=== PATIENT | male | born 1970 | race Caucasian/White ===

== ENCOUNTER 2017-04-18 11:30 | Emergency (ER) | payer SELFPAY, OTHER ==
[2017-04-18] MEDS: NS 1,000 ML IV (12:30)
[2017-04-18] MEDS: ONDANSETRON 4MG/2ML VIAL (J2405) IV (12:31)
[2017-04-18] MEDS: MORPHINE 4 MG/ML 1ML SYRINGE IV (12:31)
[2017-04-18 12:35] LABS: BASO % 0.1 % (0.0-1.0); HEMATOCRIT 40.4 % (42.0-52.0); HEMOGLOBIN 14.2 g/dl (14.0-18.0); IMMATURE GRANULOCYTE # 0.1 10^3/uL (0-0); IMMATURE GRANULOCYTE % 0.4 % (0-0); LYMPH # 1.3 10^3/uL (1.5-4.5); LYMPH % 7.8 % (24.0-44.0); MEAN CORPUSCULAR HEMOGLOBIN 31.8 pg (27.0-33.0); MEAN CORPUSCULAR HGB CONC 35.1 g/dl (32.0-36.5); MEAN CORPUSCULAR VOLUME 90.4 fl (80.0-96.0); MONO # 0.4 10^3/uL (0.0-0.8); MONO % 2.2 % (0.0-5.0); NEUTROPHILS # 14.8 10^3/uL (1.8-7.7); NEUTROPHILS % 89.5 % (36.0-66.0); PLATELET COUNT, AUTOMATED 269 10^3/uL (150-450); RED BLOOD COUNT 4.47 10^6/uL (4.30-6.10); RED CELL DISTRIBUTION WIDTH 11.7 % (11.5-14.5); WHITE BLOOD COUNT 16.5 10^3/uL (4.0-10.0)
[2017-04-18 12:40] LABS: APPEARANCE, URINE HAZY (CLEAR); BACTERIA, URINE AUTO NEGATIVE (NEGATIVE); BILIRUBIN, URINE AUTO 1+ (NEGATIVE); BLOOD, URINE BLOOD NEGATIVE (NEGATIVE); COLOR, URINE AMBER (YELLOW); GLUCOSE, URINE (UA) AUTO 1+ mg/dL (NEGATIVE); KETONE, URINE AUTO 2+ mg/dL (NEGATIVE); LEUKOCYTE ESTERASE, URINE AUTO TRACE (NEGATIVE); MUCUS, URINE MODERATE (NEGATIVE); NITRITE, URINE AUTO NEGATIVE (NEGATIVE); PROTEIN, URINE AUTO 2+ mg/dL (NEGATIVE); RBC, URINE AUTO 4 /HPF (0-3); SPECIFIC GRAVITY URINE AUTO 1.034 (1.002-1.035); SQUAMOUS EPITHELIAL CELL UR AU 0 /HPF (0-6); WBC, URINE AUTO 1 /HPF (0-3)
[2017-04-18 13:06] LABS: ALBUMIN 4.5 GM/DL (3.2-5.2); ALBUMIN/GLOBULIN RATIO 1.22 (1.00-1.93); ALKALINE PHOSPHATASE 89 U/L (45-117); ALT/SGPT 26 U/L (12-78); ANION GAP 10 MEQ/L (8-16); AST/SGOT 21 U/L (7-37); BILIRUBIN,TOTAL 1.5 MG/DL (0.2-1.0); BLOOD UREA NITROGEN 18 MG/DL (7-18); CALCIUM LEVEL 9.4 MG/DL (8.5-10.1); CARBON DIOXIDE LEVEL 28 MEQ/L (21-32); CHLORIDE LEVEL 102 MEQ/L (98-107); CREATININE FOR GFR 1.06 MG/DL (0.70-1.30); GLOMERULAR FILTRATION RATE > 60.0 (>60); GLUCOSE, FASTING 160 MG/DL (70-105); LIPASE 57 U/L (73-393); POTASSIUM SERUM 4.1 MEQ/L (3.5-5.1); SODIUM LEVEL 140 MEQ/L (136-145); TOTAL PROTEIN 8.2 GM/DL (6.4-8.2)
[2017-04-18] MEDS ORDERED: ISOVUE-370 76% 100ML VIAL (Q9967) As Ordered (13:27)
== END 2017-04-18 15:20 | disposition home or self-care (01) ==
LOC: M ED 11:30
DX: K57.32 Diverticulitis of large intestine without perforation or abscess without bleeding (principal); E86.0 Dehydration; I10 Essential (primary) hypertension; K21.9 Gastro-esophageal reflux disease without esophagitis; F41.9 Anxiety disorder, unspecified; F32.9 Major depressive disorder, single episode, unspecified
CPT/HCPCS: J2405

== ENCOUNTER → 2018-02-13 | Outpatient (CLI) | payer MEDICAID | LOC: M RAD 06:27 | DX: N50.9 Disorder of male genital organs, unspecified (principal) ==

== ENCOUNTER 2018-05-03 09:05 | Day surgery (SDC) | payer OTHER ==
[~2018-05-03] VITALS: Ht 180.3 cm; Wt 58.5 kg
[~2018-05-03 09:05] MED LIST: CIPR-249 PO; FLAG500T PO; LEVA1TAB2 PO; OMEP40CA2 PO; VENL225T PO; VIST25CA PO; ZOFR4TAB14 PO
[2018-05-03] MEDS ORDERED: PROPOFOL 200 MG/20 ML VIAL As Ordered ONE (10:41)
[2018-05-03] MEDS ORDERED: ONDANSETRON 4MG/2ML VIAL (J2405) As Ordered ONE (10:41)
[2018-05-03] MEDS ORDERED: LIDOCAINE 2% INJ 100 MG/5 ML SDV (FOR ANES.) As Ordered ONE (10:41)
--- NOTE | 2018-05-03 10:55 | ROOR ---
Patient Name: Romie Mckeon Procedure Date: 05/03/2018 10:24 AM Date of : 1970 Age: 47 Room: [facility] Gender: Male Note Status: Finalized Procedure: Colonoscopy Indications: High risk colon cancer surveillance: Personal history of colonic polyps, Last colonoscopy: December 2014, Family history of colon cancer Providers: Nick KWAN MD Referring MD: JAVIER [facility] МАРИЯ Reese CLRADHA [facility], Admin. Requesting Provider: Medicines: Monitored Anesthesia Care Complications: No immediate complications. Procedure: Pre-Anesthesia Assessment: - The heart rate, respiratory rate, oxygen saturations, blood pressure, adequacy of pulmonary ventilation, and response to care were monitored throughout the procedure. The Colonoscope was introduced through the anus and advanced to the cecum, identified by appendiceal orifice and ileocecal valve. The colonoscopy was performed without difficulty. The patient tolerated the procedure well. The quality of the bowel preparation was fair. Findings: The perianal and digital rectal examinations were normal. Two sessile polyps were found in the sigmoid colon and descending colon. The polyps were 4 to 6 mm in size. These polyps were removed with a cold snare. Resection and retrieval were complete. Mild sigmoid diverticulosis and small internal hemorrhoids. The exam was otherwise without abnormality on direct and retroflexion views. Impression: - Preparation of the colon was suboptimal/fair. - Two 4 to 6 mm polyps in the sigmoid colon and in the descending colon, removed with a cold snare. Resected and retrieved. - Mild sigmoid diverticulosis and moderate internal hemorrhoids. - The examination was otherwise normal on direct and retroflexion views. Recommendation: - Repeat colonoscopy in 2 years because the bowel preparation was suboptimal. - Additional colon preparation will be needed for next colonoscopy Nick Kwan MD Nick KWAN MD 05/03/2018 10:55:02 AM This report has been signed electronically. Number of Addenda: 0 Note Initiated On: 05/03/2018 10:24 AM Estimated Blood Loss: Estimated blood loss: none.
[2018-05-03 11:10] VITALS: BP 111/64
== END 2018-05-03 11:25 | disposition home or self-care (01) ==
LOC: M OPP 09:05
PROVIDERS: ATTEND Internal Medicine Gastroenterology
DX: Z12.11 Encounter for screening for malignant neoplasm of colon (principal); Z86.010 Personal history of colon polyps; K63.5 Polyp of colon; D12.4 Benign neoplasm of descending colon; K64.8 Other hemorrhoids; Z80.0 Family history of malignant neoplasm of digestive organs; Z91.89 Other specified personal risk factors, not elsewhere classified
CPT/HCPCS: 45385; 88305; J2405

== ENCOUNTER 2019-06-15 07:48 | Emergency (ER) | payer MEDICAID, OTHER ==
[~2019-06-15] VITALS: Ht 180.3 cm; Wt 58.2 kg
[~2019-06-15 07:48] MED LIST changes: -OMEP40CA2 PO; +OMEP40CA97 PO; -VENL225T PO; +VENL225T5 PO
[2019-06-15] MEDS ORDERED: CLON0.2T (07:55)
[2019-06-15] MEDS ORDERED: FLUO20CA22 (07:55)
[2019-06-15] MEDS ORDERED: NS 1,000 ML IV ONE (08:15)
[2019-06-15] MEDS ORDERED: ONDANSETRON 4MG/2ML VIAL (J2405) IV ONE (08:15)
[2019-06-15 08:26] LABS: BASO # 0.1 10^3/uL (0.0-0.2); BASO % 0.5 % (0.0-1.0); EOS # 0.1 10^3/uL (0.0-0.5); EOS % 0.6 % (0.0-3.0); HEMATOCRIT 38.8 % (42.0-52.0); HEMOGLOBIN 13.4 g/dl (13.5-17.5); LYMPH # 2.2 10^3/uL (1.5-5.0); LYMPH % 18.9 % (24.0-44.0); MEAN CORPUSCULAR HEMOGLOBIN 31.7 pg (27.0-33.0); MEAN CORPUSCULAR HGB CONC 34.5 g/dl (32.0-36.5); MEAN CORPUSCULAR VOLUME 91.7 fl (80.0-96.0); MONO # 0.5 10^3/uL (0.0-0.8); NEUTROPHILS # 8.8 10^3/uL (1.5-8.5); NEUTROPHILS % 75.4 % (36.0-66.0); PLATELET COUNT, AUTOMATED 261 10^3/uL (150-450); RED BLOOD COUNT 4.23 10^6/uL (4.30-6.10); WHITE BLOOD COUNT 11.7 10^3/uL (4.0-10.0)
[2019-06-15] MEDS ORDERED: PROMETHAZINE INJ 25 MG/ML VIAL (J2550) IV ONE ×2 (08:45→11:00)
[2019-06-15] MEDS ORDERED: ISOVUE-370 76% 100ML VIAL (Q9967) As Ordered ONE (09:19)
[2019-06-15] MEDS ORDERED: HALOPERIDOL 5 MG/ML VIAL (J1630) IV ONE (09:45)
[2019-06-15 09:46] LABS: BILIRUBIN,DIRECT 0.1 MG/DL (0.0-0.2); BILIRUBIN,TOTAL 0.5 MG/DL (0.2-1.0); TOTAL PROTEIN 7.2 GM/DL (6.4-8.2)
--- NOTE | 2019-06-15 10:03 | REP ---
CT abdomen and pelvis without IV but without oral contrast: History: Abdomen pain, vomiting and diarrhea. Comparison CT study April 18, 2017. CT contrast dose: 100 mL of intravenous Isovue 370. 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 There is a 13 mm cyst in the periportal central region of the right lobe of the liver , a little larger than on the April 18, 2017 study. There is also a cyst inferiorly in the right lobe of the liver 8 mm in diameter, which is unchanged. There is a small cyst in the quadrate lobe also noted measuring 8.5 mm. This is visible in retrospect as well. No other focal liver lesion is seen. No abnormality is noted in the gallbladder or in the pancreas. The spleen is normal in size. There is focal splenic capsular calcification, unchanged from the prior study. This may be old post-traumatic change. Kidneys enhance symmetrically and are morphologically intact. No retroperitoneal mass or adenopathy is seen. A normal appendix is noted in the right lower quadrant. There is left colonic diverticulosis affecting the descending and sigmoid segments of the colon without CT evidence of diverticulitis. Urinary bladder, prostate, and seminal vesicles are unremarkable. No abdomen wall defect is seen. No evidence of free intraperitoneal air or fluid. No evidence of bowel obstruction seen. Impression: Left colonic diverticulosis without CT evidence of diverticulitis. Benign hepatic cysts. No acute abdominal or pelvic abnormality. Normal appendix seen. Electronically Signed by Saurav Dickinson MD 06/15/2019 10:16 A
[2019-06-15] MEDS ORDERED: POTASSIUM CHLORIDE 10 MEQ SR TABLET PO ONE (11:00)
[2019-06-15] MEDS ORDERED: PROM50TA PO ×2 (12:51→15:20)
[2019-06-15] MEDS ORDERED: PANTOPRAZOLE 40MG INJ (PROTONIX) (C9113) IV ONE (14:00)
[2019-06-15] MEDS ORDERED: SUCRALFATE SUSP 1GM/10ML UD PO ONE (14:00)
[2019-06-15] MEDS ORDERED: PROT20TA11 PO ×2 (14:31→15:20)
[2019-06-15] MEDS ORDERED: SUCR1SS PO ×2 (14:32→15:20)
[2019-06-15 15:01] VITALS: BP 142/92
== END 2019-06-15 15:22 | disposition home or self-care (01) ==
LOC: M ED 07:48
DX: E87.6 Hypokalemia (principal); K57.30 Diverticulosis of large intestine without perforation or abscess without bleeding; R11.2 Nausea with vomiting, unspecified; R19.7 Diarrhea, unspecified; F41.9 Anxiety disorder, unspecified; F33.9 Major depressive disorder, recurrent, unspecified; Z79.899 Other long term (current) drug therapy
CPT/HCPCS: 36415; 74177; 80047; 80076; 83690; 85025; 96374; 96375; 96376; 99284; C9113; J1630; J2405; Q9967

== ENCOUNTER 2019-10-11 19:12 | Emergency (ER) | payer OTHER, MEDICAID ==
[~2019-10-11] VITALS: Ht 180.3 cm; Wt 59.1 kg
[~2019-10-11 19:12] MED LIST changes: +CLON0.2T; +FLUO20CA22; +PROM50TA PO; +PROT20TA11 PO; +SUCR1SS PO
[2019-10-11] MEDS ORDERED: GI COCKTAIL 50ML BTL(HYOSCYAMINE/MAALOX/LIDOCAINE VISCOUS)(1:3:1) PO ONE (19:30)
[2019-10-11] MEDS ORDERED: ONDANSETRON 4MG/2ML VIAL IV ONE (19:45)
[2019-10-11] MEDS ORDERED: KETOROLAC 30 MG/ML 1ML VIAL IV ONE (19:45)
[2019-10-11] MEDS ORDERED: NS 1,000 ML IV ONE (19:45)
[2019-10-11 19:55] LABS: BASO % 0.1 % (0.0-1.0); EOS % 0.3 % (0.0-3.0); HEMATOCRIT 44.5 % (42.0-52.0); HEMOGLOBIN 15.8 g/dl (13.5-17.5); LYMPH # 2.1 10^3/uL (1.5-5.0); LYMPH % 13.2 % (24.0-44.0); MEAN CORPUSCULAR HEMOGLOBIN 31.9 pg (27.0-33.0); MEAN CORPUSCULAR HGB CONC 35.5 g/dl (32.0-36.5); MEAN CORPUSCULAR VOLUME 89.9 fl (80.0-96.0); MONO % 6.4 % (0.0-5.0); NEUTROPHILS # 12.5 10^3/uL (1.5-8.5); NEUTROPHILS % 79.7 % (36.0-66.0); PLATELET COUNT, AUTOMATED 293 10^3/uL (150-450); RED BLOOD COUNT 4.95 10^6/uL (4.30-6.10); WHITE BLOOD COUNT 15.7 10^3/uL (4.0-10.0)
[2019-10-11] MEDS: GASTROGRAFIN SOLUTION 30ML PO SCH ×2 (20:05→20:32)
[2019-10-11 20:18] LABS: ALBUMIN 4.5 GM/DL (3.2-5.2); ALT/SGPT 26 U/L (12-78); BILIRUBIN,DIRECT 0.2 MG/DL (0.0-0.2); BILIRUBIN,TOTAL 0.7 MG/DL (0.2-1.0); CK-MB VALUE MASS 3.4 NG/ML (<3.6); CPK CREATINE PHOSPHOKINASE 462 U/L (39-308); LIPASE 848 U/L (73-393); MB/CK RELATIVE INDEX 0.74 (< OR =4); TOTAL PROTEIN 8.6 GM/DL (6.4-8.2); TROPONIN I < 0.02 NG/ML (< 0.10)
[2019-10-11] MEDS ORDERED: ISOVUE-370 76% 100ML VIAL As Ordered ONE (21:48)
--- NOTE | 2019-10-11 22:40 | REPVR ---
PROCEDURE INFORMATION: Exam: CT Abdomen And Pelvis With Contrast Exam date and time: 10/11/2019 10:02 PM Age: 49 years old Clinical indication: Abdominal pain; Additional info: HX of diverticulitis with abd pain, n/v TECHNIQUE: Imaging protocol: Computed tomography of the abdomen and pelvis with intravenous contrast. Radiation optimization: All CT scans at this facility use at least one of these dose optimization techniques: automated exposure control; mA and/or kV adjustment per patient size (includes targeted exams where dose is matched to clinical indication); or iterative reconstruction. Contrast material: ISOVUE 370; Contrast volume: 100 ml; Contrast route: INTRAVENOUS (IV); COMPARISON: CT ABD/PEL W/IV CONTRAST ONLY 06/15/2019 9:16 AM FINDINGS: Liver: Hepatic cysts measure up to 9 x 12 mm in the right lobe of the liver, findings stable in comparison to the prior study. Gallbladder and bile ducts: Normal. No calcified stones. No ductal dilation. Pancreas: Normal. No ductal dilation. Spleen: The splenic capsular calcification demonstrated. Finding may be related to prior trauma or infection. Findings are stable. Adrenals: Normal. No mass. Kidneys and ureters: Normal. No hydronephrosis. Stomach and bowel: Boggy appearance of the distal left and sigmoid colon including wall thickening. Findings may be related to diverticulitis although extensive involvement suggests possible segmental colitis. No abscess demonstrated. Appendix: No evidence of appendicitis. Intraperitoneal space: Unremarkable. No free air. No significant fluid collection. Vasculature: The aorta demonstrates mild atherosclerotic calcification. Lymph nodes: Unremarkable. No enlarged lymph nodes. Bladder: Unremarkable as visualized. Reproductive: Unremarkable as visualized. Bones/joints: Moderate central spinal stenosis L3-L4 and severe central spinal stenosis L4-L5. Bulging disc annulus L5-S1 resulting in a [id number] central spinal stenosis. The spine demonstrates mild degenerative changes. Soft tissues: Unremarkable. IMPRESSION: 1. Boggy appearance of the distal left and sigmoid colon including wall thickening. Findings may be related to diverticulitis although extensive involvement suggests possible segmental colitis. No abscess demonstrated. 2. Numerous hepatic cysts without complex features. 3. Splenic capsular calcification likely postinflammatory/posttraumatic. Electronically signed by: Ramirez Rubio On 10/11/2019 22:39:38 PM
[2019-10-11] MEDS ORDERED: CIPROFLOXACIN 400 MG in IV 1 EA IV ONE (23:00)
[2019-10-11] MEDS ORDERED: metroNIDAZOLE 500 MG in IV 1 EA IV ONE (23:00)
[2019-10-11 23:44] VITALS: BP 165/85
[2019-10-12] MEDS ORDERED: CIPR-249 PO (00:34)
[2019-10-12] MEDS ORDERED: FLAG500T PO (00:34)
[2019-10-12] MEDS ORDERED: POTASSIUM CHLORIDE 10 MEQ SR TABLET PO ONE (00:45)
[2019-10-12 01:04] LABS: HEMOGLOBIN A1c 5.7 %
--- NOTE | 2019-10-12 06:58 | ECGEPIP ---
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
== END 2019-10-12 01:20 | disposition home or self-care (01) ==
LOC: M ED 19:12
DX: K58.9 Irritable bowel syndrome, unspecified (principal); I10 Essential (primary) hypertension; F12.90 Cannabis use, unspecified, uncomplicated; Z79.899 Other long term (current) drug therapy
CPT/HCPCS: 74177; 80047; 80076; 81001; 82550; 82553; 83036; 83605; 83690; 85025; 93005; 96361; 96365; 96375; 99284; J0744; J1885; J2405; Q9963; Q9967

== ENCOUNTER 2019-11-14 14:50 | Emergency (ER) | payer OTHER, MEDICAID ==
[~2019-11-14 14:50] MED LIST changes: +GASTROGRAFIN SOLUTION 30ML (Q9963) As Ordered ONE; +GASTROGRAFIN SOLUTION 30ML (Q9963) ONE; +HALOPERIDOL 5MG/ML VIAL (J1630 PER 1) As Ordered ONE; +HALOPERIDOL 5MG/ML VIAL (J1630 PER 1) ONE; +ISOVUE-370 76% 100ML VIAL As Ordered ONE; +ONDANSETRON 4MG/2ML VIAL As Ordered ONE; +ONDANSETRON 4MG/2ML VIAL ONE
--- NOTE | 2019-12-24 11:15 | ECGEPIP ---
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 SEE SCANNED DOWNTIME REPORT
[2019-12-28 16:29] LABS: BASO # 0.1 10^3/uL (0.0-0.2); BASO % 0.4 % (0.0-1.0); EOS % 0.1 % (0.0-3.0); HEMATOCRIT 39.5 % (42.0-52.0); HEMOGLOBIN 13.7 g/dl (13.5-17.5); LYMPH # 1.9 10^3/uL (1.5-5.0); LYMPH % 13.5 % (24.0-44.0); MEAN CORPUSCULAR HEMOGLOBIN 32.3 pg (27.0-33.0); MEAN CORPUSCULAR HGB CONC 34.7 g/dl (32.0-36.5); MEAN CORPUSCULAR VOLUME 93.2 fl (80.0-96.0); MONO # 0.5 10^3/uL (0.0-0.8); MONO % 3.1 % (0.0-5.0); NEUTROPHILS # 11.8 10^3/uL (1.5-8.5); NEUTROPHILS % 82.4 % (36.0-66.0); PLATELET COUNT, AUTOMATED 266 10^3/uL (150-450); RED BLOOD COUNT 4.24 10^6/uL (4.30-6.10); WHITE BLOOD COUNT 14.3 10^3/uL (4.0-10.0)
[2020-02-02 12:38] LABS: ALT/SGPT 13 U/L (12-78); BILIRUBIN,DIRECT 0.2 MG/DL (0.0-0.2); BILIRUBIN,TOTAL 0.7 MG/DL (0.2-1.0); BLOOD UREA NITROGEN 11 MG/DL (7-18); CALCIUM LEVEL 9.3 MG/DL (8.5-10.1); CARBON DIOXIDE LEVEL 25 MEQ/L (21-32); CHLORIDE LEVEL 105 MEQ/L (98-107); CREATININE FOR GFR 1.11 MG/DL (0.70-1.30); GLOMERULAR FILTRATION RATE > 60.0 (>60); GLUCOSE, FASTING 129 MG/DL (70-100); LIPASE 279 U/L (73-393); POTASSIUM SERUM 3.6 MEQ/L (3.5-5.1); SODIUM LEVEL 140 MEQ/L (136-145); TOTAL PROTEIN 7.3 GM/DL (6.4-8.2)
== END 2019-11-14 18:20 | disposition home or self-care (01) ==
LOC: M ED 14:50
DX: A04.72 Enterocolitis due to Clostridium difficile, not specified as recurrent (principal); K21.9 Gastro-esophageal reflux disease without esophagitis; I10 Essential (primary) hypertension; F32.9 Major depressive disorder, single episode, unspecified; F41.9 Anxiety disorder, unspecified; K58.9 Irritable bowel syndrome, unspecified; K57.90 Diverticulosis of intestine, part unspecified, without perforation or abscess without bleeding; F12.10 Cannabis abuse, uncomplicated; M85.80 Other specified disorders of bone density and structure, unspecified site; R00.1 Bradycardia, unspecified; R94.31 Abnormal electrocardiogram [ECG] [EKG]
CPT/HCPCS: 74177; 80048; 80076; 83605; 83690; 85025; 87040; 87507; 93005; 96361; 96374; 96375; 99284; J1630; J2405; Q9963; Q9967

== ENCOUNTER 2020-05-04 08:51 | Observation (INO) | payer MEDICAID, OTHER ==
[~2020-05-04] VITALS: Ht 180.3 cm; Wt 59.1 kg
[~2020-05-04 08:51] MED LIST changes: -CLON0.2T; +CLON0.2T PO; -FLUO20CA22; +FLUO20CA22 PO; -GASTROGRAFIN SOLUTION 30ML (Q9963) As Ordered ONE; -GASTROGRAFIN SOLUTION 30ML (Q9963) ONE; -HALOPERIDOL 5MG/ML VIAL (J1630 PER 1) As Ordered ONE; -HALOPERIDOL 5MG/ML VIAL (J1630 PER 1) ONE; -ISOVUE-370 76% 100ML VIAL As Ordered ONE; -ONDANSETRON 4MG/2ML VIAL As Ordered ONE; -ONDANSETRON 4MG/2ML VIAL ONE
[2020-05-04] MEDS ORDERED: BUSP1TAB PO (08:59)
[2020-05-04] MEDS ORDERED: LORazepam 2 MG/ML VIAL IV STA (09:08)
[2020-05-04] MEDS ORDERED: NS 1,000 ML IV ONE (09:15)
[2020-05-04] MEDS ORDERED: ONDANSETRON 4MG/2ML VIAL IV ONE (09:15)
--- NOTE | 2020-05-04 09:45 | REP ---
INDICATION: trauma COMPARISON: None. TECHNIQUE: Internal rotation, external rotation, and Y view. FINDINGS: No acute fracture or dislocation. No obvious soft tissue injury. Mild arthritic changes include subtle cortical irregularity at the acromioclavicular joint and small spur along the humeral head. Subacromial space is normal. No periarticular calcifications or loose bodies. IMPRESSION: Mild degenerative changes. No evidence for acute fracture or dislocation. <Electronically signed by Jose Duarte > 05/04/20 0930
[2020-05-04 10:09] LABS: BASO % 0.1 % (0.0-1.0); HEMOGLOBIN 14.7 g/dl (13.5-17.5); LYMPH # 1.2 10^3/uL (1.5-5.0); LYMPH % 5.6 % (24.0-44.0); MEAN CORPUSCULAR HEMOGLOBIN 31.9 pg (27.0-33.0); MEAN CORPUSCULAR VOLUME 91.1 fl (80.0-96.0); MONO # 0.8 10^3/uL (0.0-0.8); MONO % 3.8 % (0.0-5.0); NEUTROPHILS # 18.7 10^3/uL (1.5-8.5); NEUTROPHILS % 89.5 % (36.0-66.0); PLATELET COUNT, AUTOMATED 271 10^3/uL (150-450); RED BLOOD COUNT 4.61 10^6/uL (4.30-6.10); WHITE BLOOD COUNT 20.9 10^3/uL (4.0-10.0)
[2020-05-04] MEDS ORDERED: ISOVUE-370 76% 100ML VIAL As Ordered ONE (10:18)
[2020-05-04 10:24] LABS: ALBUMIN 4.6 GM/DL (3.2-5.2); BILIRUBIN,DIRECT 0.2 MG/DL (0.0-0.2); BILIRUBIN,TOTAL 0.9 MG/DL (0.2-1.0); TOTAL PROTEIN 8.4 GM/DL (6.4-8.2)
--- NOTE | 2020-05-04 11:04 | REP ---
INDICATION: abd pain leukocytosis. COMPARISON: 11/14/2019 TECHNIQUE: Axial contrast-enhanced images from the lung bases to the pubic symphysis using 100 cc Isovue 370 intravenous contrast material. Coronal and sagittal reformations obtained. This CT examination was performed using the following dose reduction techniques: Automated exposure control, adjustment of mA and/or kv according to the patient's size, and the use of iterative reconstruction technique. FINDINGS: Lung bases are clear. Visualized heart and pericardium normal. Liver includes 1 cm and 1.8 cm benign appearing cysts. Spleen, pancreas, gallbladder, bilateral adrenal glands and kidneys are normal. Small hiatal hernia at the gastroesophageal junction noted. The enteric system including stomach, small, and large bowel otherwise appears normal. No evidence for obstruction or acute inflammatory process. Normal terminal ileum and appendix are identified in the right lower quadrant. Few sigmoid diverticula noted without acute diverticulitis. Pelvis demonstrates normal bladder and age-appropriate prostate/seminal vesicles. No ascites. No free air. No intraperitoneal or retroperitoneal adenopathy. Abdominal aorta and vasculature appear normal. Musculoskeletal structures are intact and without acute osseous abnormality. IMPRESSION: No acute abdominopelvic pathology appreciated. <Electronically signed by Jose Duarte > 05/04/20 1100
[2020-05-04] MEDS ORDERED: LABETALOL 100MG/20ML VIAL IV STA (11:14)
[2020-05-04] MEDS ORDERED: PATIENT COMMENT (11:30)
--- NOTE | 2020-05-04 12:01 | HPEPDOC ---
[facility] Medical History & Physical Date of Admission May 04, 2020 Date of Service: May 04, 2020 History and Physical CHIEF COMPLAINT: Syncope HISTORY OF PRESENT ILLNESS: 49-year-old male past medical history of recurrent diverticulitis, IBS, anxiety and depression, hypertension who presents to the hospital due to syncopal episode at home. Patient states that he was taking a shower and felt lightheaded and dehydrated he hasn't been eating or drinking much over the past few days due to abdominal pain and he fell in the shower hitting his head. His son found him in the shower this is when he regained consciousness and brought him to the hospital. In the hospital when he was seen patient says he feels better but eda shafer feels a little dehydrated. Patient endorses her current history of diverticulitis which she says happens every 2-3 months for which she typically does not see a physician and stays at home until it resolves. During these episodes his appetite is very poor and he is not tolerating fluids or liquids. He believes a similar episode just happened over the past week which is why he felt so dehydrated. Endorses abdominal pain n/v yesterday - better today. Has hx of HTN but denies taking any medications for it. PAST MEDICAL/SURGICAL HISTORY: Diverticulitis Hypertension Anxiety/depression IBS Recurrent abdominal pain and vomiting GERD SOCIAL HISTORY: Denies alcohol use, quit many years ago Denies tobacco use Denies illicit drug use FAMILY HISTORY: Reviewed and none contributory to this admission ALLERGIES: Please see below. REVIEW OF SYSTEMS: 10 point review of systems complete all negative otherwise stated in HPI HOME MEDICATIONS: Please see below. PHYSICAL EXAMINATION: Constitutional: Awake and alert, in no apparent distress ENT: Sclera are clear. Mucosa is moist. Respiratory: Lungs CTA bilaterally. No respiratory distress. No use of accessory muscles. Cardiovascular: RRR S1 and S2 are normal, no murmur Gastrointestinal: Abdomen is soft, non distended, mild discomfort to palpation, BS present. Musculoskeletal: No lower extremity edema. Neurologic: No focal neurological deficit. Mental Status: A&O x3, normal affect. Skin: Warm, dry LABORATORY DATA: See below. IMAGING: See chart MICROBIOLOGY: Please see below. ASSESSMENT/PLAN 49-year-old male past medical history of recurrent diverticulitis, IBS, anxiety and depression, hypertension who presents to the hospital due to syncopal episode at home admitted for further medical management and workup. # Syncope: could be due to dehydration, vasovagal. IVFs. Admit to medicine on telemetry monitoring. EKG NSR. PT/OT. # abdominal discomfort: history of multiple episodes of diverticulitis. CT abdomen does not show evidence of diverticulitis at this time. Continue to monitor. No ABx for now. Regalan for n/v. # HTN: doesn't take any medications at home. He is on clonidine. Will start him on Lisinopril and HCTZ. # Anxiety/depression: continue fluoxetine, buspirone. # Leukocytosis: Could be reactive from the fall/ demargination. Trend WBC. Fu BCx. fu UA. # Hypokalemia: replace. monitor. # DVT prophylaxis: Lovenox A Youf Hospitalist Vital Signs Vital Signs Date Time Temp Pulse Resp B/P (MAP) Pulse Ox O2 Delivery O2 Flow Rate FiO2 05/04/20 10:57 99.5 05/04/20 10:53 77 192/112 (138) 05/04/20 10:15 18 96 Room Air Laboratory Data Labs 24H Laboratory Tests 2 05/04/20 09:07: Immature Granulocyte % (Auto) 1.0, Neutrophils (%) (Auto) 89.5H, Lymphocytes (%) (Auto) 5.6L, Monocytes (%) (Auto) 3.8, Eosinophils (%) (Auto) 0.0, Basophils (%) (Auto) 0.1, Neutrophils # (Auto) 18.7H, Lymphocytes # (Auto) 1.2L, Monocytes # (Auto) 0.8, Eosinophils # (Auto) 0.0, Basophils # (Auto) 0.0, Nucleated Red Blood Cells % (auto) 0.0, Total Bilirubin 0.9, Direct Bilirubin 0.2, Aspartate Amino Transf (AST/SGOT) 33, Alanine Aminotransferase (ALT/SGPT) 31, Alkaline Phosphatase 101, Total Protein 8.4H, Albumin 4.6, Albumin/Globulin Ratio 1.2, Lipase 104 05/04/20 09:44: POC Glucose (Misc Panel) 160H, POC Sodium (Misc Panel) 139, POC Potassium (Misc Panel) 3.3L, POC Chloride (Misc Panel) 103, POC Total CO2 (Misc Panel) 24.0, POC Blood Urea Nitrogen (Misc Panel 14, POC Ionized Calcium (Misc Panel) 4.6, POC Creatinine (Misc Panel) 1.0, POC Hematocrit (Misc Panel) 46.0 05/04/20 09:45: POC Troponin I (Misc) 0.00 05/04/20 10:12: Lactic Acid Level 1.9 05/04/20 11:29: CBC/BMP Laboratory Tests 05/04/20 09:07 Microbiology Microbiology 05/04/20 Blood Culture, Received Pending Home Medications Scheduled Buspirone HCl (Buspirone HCl) 7.5 Mg Tablet, 7.5 MG PO TID Clonidine HCl (Clonidine HCl) 0.2 Mg Tablet, 0.2 MG PO BID Fluoxetine Hcl (Fluoxetine HCl) 20 Mg Capsule, 80 MG PO DAILY Miscellaneous Medications [Patient Comment] UNABLE TO VERIFY MEDICATIONS WITH PATIENT - MED LIST OBTAINED FROM EXT MED HX Allergies Coded Allergies: No Known Allergies (Unverified , 06/15/19) A-FIB/CHADSVASC A-FIB History Current/History of A-Fib/PAF?: No LIZ BEVERLY MD May 04, 2020 12:01
[2020-05-04] MEDS ORDERED: MAALOX 30 ML SUSP *UDC PO PRN (12:15)
[2020-05-04] MEDS ORDERED: ACETAMINOPHEN TAB 650MG DOSE (2X325MG) PO PRN (12:15)
[2020-05-04] MEDS ORDERED: MOM 30ML SUSPENSION UDC PO PRN (12:15)
[2020-05-04] MEDS ORDERED: lisinopriL 20 MG TAB PO ONE (12:30)
[2020-05-04] MEDS ORDERED: hydroCHLOROthiazide 12.5 MG CAPSULE PO ONE (12:30)
[2020-05-04 12:50] LABS: RSV AMPLIFICATION NEGATIVE (NEGATIVE)
[2020-05-04] MEDS: METOCLOPRAMIDE INJ 10MG/2ML VIAL (J2765 PER 1) IV SCH ×2 (13:58→18:21)
[2020-05-04 14:00] VITALS: BP 170/100
[2020-05-04] MEDS ORDERED: PILL CUTTER 1 EACH XX PRN (14:00)
[2020-05-04] MEDS: NS 1,000 ML IV SCH (14:00)
[2020-05-04] MEDS: KCL 10MEQ/100ML SWI (KRUN) 10 MEQ in IV 1 EA IV SCH ×2 (14:04→16:13)
[2020-05-04 15:17] LABS: APPEARANCE, URINE CLEAR (CLEAR); BACTERIA, URINE AUTO NEGATIVE (NEGATIVE); BILIRUBIN, URINE AUTO NEGATIVE (NEGATIVE); BLOOD, URINE BLOOD 2+ (NEGATIVE); COLOR, URINE YELLOW (YELLOW); GLUCOSE, URINE (UA) AUTO NEGATIVE (NEGATIVE); KETONE, URINE AUTO NEGATIVE (NEGATIVE); LEUKOCYTE ESTERASE, URINE AUTO NEGATIVE (NEGATIVE); NITRITE, URINE AUTO NEGATIVE (NEGATIVE); PROTEIN, URINE AUTO 1+ mg/dL (NEGATIVE); RBC, URINE AUTO 3 /HPF (0-3); SQUAMOUS EPITHELIAL CELL UR AU 0 /HPF (0-6); UROBILINOGEN, URINE AUTO 0.2 mg/dL (0.0-2.0); WBC, URINE AUTO 1 /HPF (0-3)
[2020-05-04] MEDS: busPIRone 5 MG TAB PO SCH ×2 (16:12→20:10)
[2020-05-04] MEDS ORDERED: **hydrALAZINE HCL** 25 MG TAB PO ONE (20:00)
[2020-05-04] MEDS: cloNIDine 0.2 MG TAB PO SCH (20:09)
[2020-05-04] MEDS: DOCUSATE SODIUM 100MG CAPSULE PO SCH (20:09)
[2020-05-04 22:00] VITALS: BP 167/95
[2020-05-05] VITALS: BP 158/88
[2020-05-05] MEDS: METOCLOPRAMIDE INJ 10MG/2ML VIAL (J2765 PER 1) IV SCH ×3 (00:12→12:36)
[2020-05-05] MEDS: NS 1,000 ML IV SCH (02:30)
[2020-05-05 06:00] VITALS: BP 168/90
[2020-05-05 06:22] LABS: HEMATOCRIT 40.4 % (42.0-52.0); HEMOGLOBIN 13.8 g/dl (13.5-17.5); MEAN CORPUSCULAR HEMOGLOBIN 31.9 pg (27.0-33.0); MEAN CORPUSCULAR HGB CONC 34.2 g/dl (32.0-36.5); MEAN CORPUSCULAR VOLUME 93.5 fl (80.0-96.0); PLATELET COUNT, AUTOMATED 223 10^3/uL (150-450); RED BLOOD COUNT 4.32 10^6/uL (4.30-6.10); WHITE BLOOD COUNT 21.1 10^3/uL (4.0-10.0)
[2020-05-05 06:41] LABS: BLOOD UREA NITROGEN 10 MG/DL (7-18); CREATININE FOR GFR 0.83 MG/DL (0.70-1.30); GLUCOSE, FASTING 104 MG/DL (70-100)
[2020-05-05 06:42] LABS: CALCIUM LEVEL 9.2 MG/DL (8.5-10.1); CARBON DIOXIDE LEVEL 24 MEQ/L (21-32); CHLORIDE LEVEL 104 MEQ/L (98-107); GLOMERULAR FILTRATION RATE > 60.0 (>60); POTASSIUM SERUM 3.2 MEQ/L (3.5-5.1); SODIUM LEVEL 139 MEQ/L (136-145)
[2020-05-05] MEDS ORDERED: KCL 10MEQ/100ML SWI (KRUN) 10 MEQ in IV 1 EA IV ONE (07:30)
[2020-05-05 07:44] LABS: MAGNESIUM LEVEL 1.8 MG/DL (1.8-2.4)
[2020-05-05] MEDS ORDERED: POTASSIUM CHLORIDE 10 MEQ SR TABLET PO ONE ×2 (08:00→10:00)
[2020-05-05] MEDS ORDERED: KCL 10MEQ/100ML SWI (KRUN) SINGLE DOSE IV ONE ×8 (08:00→11:00)
--- NOTE | 2020-05-05 08:14 | REP ---
INDICATION: Leukocytosis COMPARISON: 09/16/2012 TECHNIQUE: Portable AP view of the chest FINDINGS: The mediastinum and cardiac silhouette are stable and within normal limits for portable technique. The lung reich are clear without acute consolidation, effusion, or pneumothorax. Skeletal structures are intact. IMPRESSION: No acute cardiopulmonary process appreciated. <Electronically signed by Jose Duarte > 05/05/20 0838
[2020-05-05] MEDS: DOCUSATE SODIUM 100MG CAPSULE PO SCH (08:43)
[2020-05-05] MEDS: cloNIDine 0.2 MG TAB PO SCH (08:45)
[2020-05-05 08:46] VITALS: BP 162/98
[2020-05-05] MEDS: busPIRone 5 MG TAB PO SCH (08:49)
[2020-05-05] MEDS ORDERED: FLUoxetine 20 MG CAP PO SCH (09:00)
[2020-05-05] MEDS ORDERED: ENOXAPARIN 40MG/0.4ML SYRINGE (J1650 PER 10MG) SC SCH (09:00)
[2020-05-05] MEDS ORDERED: lisinopriL 20 MG TAB PO SCH (09:00)
[2020-05-05] MEDS ORDERED: hydroCHLOROthiazide 12.5 MG CAPSULE PO SCH (09:00)
--- NOTE | 2020-05-05 11:46 | IPNPDOC ---
Text Note Date of Service The patient was seen on 05/05/20. NOTE Subjective: Patient seen and examined this morning at bedside. Patient tells me he is feeling better overall does not feel dehydrated anymore and is not dizzy when walking on his room and assisted in his feet. He states he does not have abdominal pain at this time denies any fevers chills no chest pain or shortness of breath no cough or sputum production. Patient says he's feeling his ready to go home today. Objective: Constitutional: Awake and alert, in no apparent distress ENT: Sclera are clear. Mucosa is moist. Respiratory: Lungs CTA bilaterally. No respiratory distress. No use of accessory muscles. Cardiovascular: RRR S1 and S2 are normal, no murmur Gastrointestinal: Abdomen is soft, non distended, mild discomfort to palpation, BS present. Musculoskeletal: No lower extremity edema. Neurologic: No focal neurological deficit. Mental Status: A&O x3, normal affect. Skin: Warm, dry Assessment/plan: 49-year-old male past medical history of recurrent diverticulitis, IBS, anxiety and depression, hypertension who presents to the hospital due to syncopal episod e at home admitted for further medical management and workup. # Syncope: Likely due to dehydration, vasovagal. IVFs. Admit to medicine on telemetry monitoring. EKG NSR. Patient was cleared to discharge home today with follow-up with his primary care physician in 3-5 days. # abdominal discomfort: history of multiple episodes of diverticulitis. CT abdomen does not show evidence of diverticulitis at this time. Continue to monitor. No ABx for now. Regalan for n/v. Today's nausea and vomiting resolved. # HTN: doesn't take any medications at home. He is on clonidine. Will start him on Lisinopril and HCTZ. Blood pressure is better controlled today but he needs to follow up with his primary care physician to titrate his antihypertensive medications. # Anxiety/depression: continue fluoxetine, buspirone. # Leukocytosis: Could be reactive from the fall/ demargination. Blood cultures are preliminarily negative. Patient tells me he's had a chronic history of leukocytosis that has never resolved. I can confirm this from his chart review it appears that last and is admitted in November 2019 he also had an elevated WBC. I do not suspect we're dealing with an infection at this time he is afebrile with no chills and negative urinalysis as well as a negative chest x-ray and no abdominal symptoms at this time. His blood cultures were also prelim negative. # Hypokalemia: replace. monitor. # DVT prophylaxis: Arm[facility] Hospitalist VSRadha, I+O VSRadha, I+O Laboratory Tests 05/05/20 05:34 Vital Signs Date Time Temp Pulse Resp B/P (MAP) Pulse Ox O2 Delivery O2 Flow Rate FiO2 05/05/20 08:46 162/98 05/05/20 06:00 98.0 60 18 96 Room Air I&O- Last 24 Hours up to 6 AM 05/05/20 06:00 Intake Total 3100 ml Output Total 1275 ml Balance 1825 ml LIZ BEVERLY MD May 05, 2020 11:46
[2020-05-05] MEDS ORDERED: LISI-538 PO (11:47)
[2020-05-05] MEDS ORDERED: HYDR12CA PO (11:47)
--- NOTE | 2020-05-05 14:36 | ECGEPIP ---
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
== END 2020-05-05 13:59 | disposition home or self-care (01) ==
LOC: M ED 08:51 → M ED INP 08:52 → M MSPAV 13:47
PROVIDERS: ADMIT Family Medicine; ATTEND Family Medicine
DX: R55 Syncope and collapse (principal); E86.0 Dehydration; I10 Essential (primary) hypertension; K57.92 Diverticulitis of intestine, part unspecified, without perforation or abscess without bleeding; K58.8 Other irritable bowel syndrome; D72.829 Elevated white blood cell count, unspecified; E87.6 Hypokalemia; Z79.899 Other long term (current) drug therapy; R10.9 Unspecified abdominal pain; K21.9 Gastro-esophageal reflux disease without esophagitis; F41.9 Anxiety disorder, unspecified; F32.9 Major depressive disorder, single episode, unspecified
CPT/HCPCS: 36415; 71045; 73030; 74177; 80047; 80048; 80076; 80307; 81001; 83605; 83690; 83735; 85025; 85027; 87040; 87631; 93005; 93041; 96361; 96372; 96374; 96375; 96376; 97161; 97165; 99285; J1650; J2060; J2405; J2765; Q9967

== ENCOUNTER → 2020-05-13 | Outpatient (CLI) | payer OTHER, MEDICAID ==
[~2020-05-13] MED LIST changes: +BUSP1TAB PO; +HYDR12CA PO; +LISI-538 PO; +PATIENT COMMENT
[2020-05-13 16:16] LABS: BASO # 0.1 10^3/uL (0.0-0.2); BASO % 0.6 % (0.0-1.0); EOS # 0.2 10^3/uL (0.0-0.5); EOS % 1.6 % (0.0-3.0); HEMATOCRIT 38.5 % (42.0-52.0); HEMOGLOBIN 12.9 g/dl (13.5-17.5); LYMPH # 2.9 10^3/uL (1.5-5.0); LYMPH % 24.4 % (24.0-44.0); MEAN CORPUSCULAR HEMOGLOBIN 32.4 pg (27.0-33.0); MEAN CORPUSCULAR HGB CONC 33.5 g/dl (32.0-36.5); MEAN CORPUSCULAR VOLUME 96.7 fl (80.0-96.0); MONO # 0.8 10^3/uL (0.0-0.8); MONO % 6.6 % (0.0-5.0); NEUTROPHILS # 7.8 10^3/uL (1.5-8.5); NEUTROPHILS % 66.1 % (36.0-66.0); PLATELET COUNT, AUTOMATED 315 10^3/uL (150-450); RED BLOOD COUNT 3.98 10^6/uL (4.30-6.10); WHITE BLOOD COUNT 11.7 10^3/uL (4.0-10.0)
== END ==
LOC: M WUC 13:33
PROVIDERS: ATTEND Nurse Practitioner Family
DX: D72.9 Disorder of white blood cells, unspecified (principal); E87.6 Hypokalemia

== ENCOUNTER 2020-08-24 21:14 | Emergency (ER) | payer OTHER, MEDICAID ==
[~2020-08-24] VITALS: Ht 180.3 cm; Wt 59.8 kg
[~2020-08-24 21:14] MED LIST changes: -LISI-538 PO; +LISI20TA33 PO
[2020-08-24] MEDS ORDERED: MIRT1TAB15 PO (21:23)
[2020-08-24] MEDS ORDERED: HYDR50TA70 PO (21:23)
[2020-08-24 22:16] LABS: BASO % 0.1 % (0.0-1.0); HEMATOCRIT 40.1 % (42.0-52.0); HEMOGLOBIN 13.9 g/dl (13.5-17.5); LYMPH # 1.2 10^3/uL (1.5-5.0); LYMPH % 8.7 % (24.0-44.0); MEAN CORPUSCULAR HEMOGLOBIN 32.1 pg (27.0-33.0); MEAN CORPUSCULAR HGB CONC 34.7 g/dl (32.0-36.5); MEAN CORPUSCULAR VOLUME 92.6 fl (80.0-96.0); MONO # 0.3 10^3/uL (0.0-0.8); MONO % 2.1 % (2.0-8.0); NEUTROPHILS # 12.3 10^3/uL (1.5-8.5); NEUTROPHILS % 88.7 % (36.0-66.0); PLATELET COUNT, AUTOMATED 355 10^3/uL (150-450); RED BLOOD COUNT 4.33 10^6/uL (4.30-6.10); WHITE BLOOD COUNT 13.9 10^3/uL (4.0-10.0)
[2020-08-24 22:42] LABS: ALBUMIN 4.2 GM/DL (3.2-5.2); ALT/SGPT 27 U/L (12-78); BILIRUBIN,DIRECT 0.2 MG/DL (0.0-0.2); BILIRUBIN,TOTAL 0.9 MG/DL (0.2-1.0); LIPASE 167 U/L (73-393); TOTAL PROTEIN 7.8 GM/DL (6.4-8.2)
[2020-08-24] MEDS ORDERED: ONDANSETRON 4MG/2ML VIAL IV ONE (22:55)
[2020-08-24] MEDS ORDERED: PANTOPRAZOLE 40MG VIAL (C9113 PER 1) IV ONE (22:55)
[2020-08-24] MEDS ORDERED: GI COCKTAIL 50ML BTL(HYOSCYAMINE/MAALOX/LIDOCAINE VISCOUS)(1:3:1) PO ONE (22:55)
[2020-08-24] MEDS ORDERED: NS 1,000 ML IV ONE (22:55)
[2020-08-24] MEDS ORDERED: METOCLOPRAMIDE INJ 10MG/2ML VIAL (J2765 PER 1) IV ONE (23:10)
[2020-08-24 23:17] LABS: CK-MB VALUE MASS 1.2 NG/ML (<3.6); CPK CREATINE PHOSPHOKINASE 156 U/L (39-308); MB/CK RELATIVE INDEX 0.77 (< OR =4); TROPONIN I < 0.02 NG/ML (< 0.10)
--- NOTE | 2020-08-24 23:48 | REPVR ---
PROCEDURE INFORMATION: Exam: XR Complete Acute Abdomen Series Exam date and time: 08/24/2020 11:09 PM Age: 50 years old Clinical indication: Other: Abd tender mod to severe, R/O perf TECHNIQUE: Imaging protocol: XR complete acute abdomen series, including 2 or more views of the abdomen and a single view chest. COMPARISON: CR Chest, 1 view 05/05/2020 7:53 AM FINDINGS: Lungs: Normal. No consolidation. Pleural spaces: Normal. No pleural effusions. No pneumothorax. Heart/Mediastinum: Normal. No cardiomegaly. Gastrointestinal tract: Moderate colonic fecal load. Intraperitoneal space: Normal. No free air. Bones/joints: Degenerative changes of bilateral hip joints and lumbar spine. Soft tissues: Normal. IMPRESSION: Moderate colonic fecal load. Clinical correlation with constipation. Electronically signed by: Paddy Diehl On 08/24/2020 23:48:14 PM
[2020-08-25] MEDS: GASTROGRAFIN SOLUTION 30ML PO SCH ×2 (00:40→01:12)
[2020-08-25] MEDS ORDERED: ISOVUE-370 76% 100ML VIAL As Ordered ONE (00:51)
[2020-08-25] MEDS ORDERED: POTASSIUM CHLORIDE 10 MEQ SR TABLET PO ONE (02:05)
[2020-08-25] MEDS ORDERED: PROMETHAZINE INJ 25 MG/ML VIAL (J2550) IV ONE (02:40)
[2020-08-25 02:47] VITALS: BP 193/91
--- NOTE | 2020-08-25 02:53 | REPVR ---
PROCEDURE INFORMATION: Exam: CT Abdomen And Pelvis With Contrast Exam date and time: 08/24/2020 11:58 PM Age: 50 years old Clinical indication: Abdominal pain; Generalized; Additional info: Diffuse abd pain, dark stools, n/v TECHNIQUE: Imaging protocol: Computed tomography of the abdomen and pelvis with contrast. Radiation optimization: All CT scans at this facility use at least one of these dose optimization techniques: automated exposure control; mA and/or kV adjustment per patient size (includes targeted exams where dose is matched to clinical indication); or iterative reconstruction. Contrast material: ISO; Contrast volume: 100 ml; Contrast route: INTRAVENOUS (IV); COMPARISON: CT ABD/PEL W/IV CONTRAST ONLY 05/04/2020 10:40 AM FINDINGS: Lungs: The imaged portions of the lung bases are clear. The lungs were not fully imaged. Heart: No cardiomegaly or pericardial effusion. Mediastinal space: There is some ingested contrast material in the distal esophagus, which may indicate gastroesophageal reflux. Liver: There are benign-appearing cysts in the liver measuring up to 1 cm, which are stable compared to the prior CT abdomen and pelvis on 05/04/2020 and for which follow-up imaging is not necessary. The contour of the liver is smooth. No hepatomegaly. Gallbladder and bile ducts: No calcified gallstones are noted. No gallbladder wall thickening, pericholecystic fluid, or pericholecystic inflammatory changes are identified. No dilation of the bile ducts is noted. No calcified stones are seen in the common bile duct. Pancreas: Normal. No dilation of the main pancreatic duct is noted. Spleen: There are linear calcifications along the the splenic capsule, which are unchanged compared to the prior CT abdomen and pelvis on 05/04/2020. No splenic mass or splenomegaly is noted. Adrenal glands: Normal. No adrenal mass is noted. Kidneys and ureters: The kidneys are normal in appearance. No renal lesion is noted. No stones are noted in the kidneys or ureters. There is no hydronephrosis or hydroureter. There are no wedge-shaped areas of low attenuation in the kidneys to suggest pyelonephritis. There is no renal abscess or perinephric fluid collection. Stomach and bowel: There is thickening of the wall of the gastric antrum and duodenal bulb. There is colonic diverticulosis without evidence for diverticulitis. There is no evidence for a bowel obstruction, colitis, pneumatosis intestinalis, intussusception, volvulus, or perforated viscus. Appendix: Normal. No evidence for appendicitis. Intraperitoneal space: No free air. No ascites. No abscess. Retroperitoneal space: No fluid collection. No mass. Vasculature: The abdominal aorta is patent, normal in caliber, and there is no dissection. The iliac arteries, common femoral arteries, renal arteries, celiac artery, superior mesenteric artery, and inferior mesenteric artery are patent. There are mild atherosclerotic calcifications. Lymph nodes: No enlarged lymph nodes. Urinary bladder: The distended urinary bladder is normal in appearance. No stones or masses are seen in the bladder. Reproductive: The prostate gland and seminal vesicles are unremarkable. Bones/joints: There is a mild anterior wedge compression fracture of L1, with mild progressive loss of vertebral body height since the prior CT abdomen and pelvis on 05/04/2020, with a visible radiolucent fracture line in the superior endplate and surrounding sclerosis. There is a Schmorl's node in the superior endplate of L3, which is unchanged compared to the prior CT abdomen and pelvis on 05/04/2020. Are Soft tissues: Unremarkable. No hernia. IMPRESSION: 1. Thickening of the wall of the gastric antrum and duodenal bulb, which may represent gastritis and duodenitis. 2. Evidence for gastroesophageal reflux. 3. Colonic diverticulosis without evidence for diverticulitis. 4. Acute on chronic mild anterior wedge compression fracture of L1, with progressive loss of vertebral body height since the prior CT abdomen and pelvis on 05/04/2020. Electronically signed by: Cristhian Adame On 08/25/2020 02:52:58 AM
[2020-08-25] MEDS ORDERED: PEPC1TAB5 PO (04:30)
[2020-08-25] MEDS ORDERED: SUCRALFATE 1 GM TAB PO ONE (04:30)
[2020-08-25] MEDS ORDERED: OMEP40CA97 PO (04:30)
[2020-08-25] MEDS ORDERED: CARA1TAB6 PO (04:30)
--- NOTE | 2020-08-25 05:02 | ECGEPIP ---
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
--- NOTE | 2020-08-25 10:39 | ED PDOC ---
Post-Departure Follow-Up [facility]ave [facility] faxed formal report of ct abd/p for fu.Juan Gould MD August 25, 2020 10:39
== END 2020-08-25 04:40 | disposition home or self-care (01) ==
LOC: M ED 21:14
DX: K30 Functional dyspepsia (principal); R10.9 Unspecified abdominal pain; K57.30 Diverticulosis of large intestine without perforation or abscess without bleeding; S32.010S Wedge compression fracture of first lumbar vertebra, sequela; I10 Essential (primary) hypertension; E87.6 Hypokalemia; K58.8 Other irritable bowel syndrome; Z79.899 Other long term (current) drug therapy
CPT/HCPCS: 74021; 74177; 80047; 80076; 81001; 82550; 82553; 83605; 83690; 85025; 93005; 96361; 96374; 96375; 99284; C9113; J2765; Q9963; Q9967

== ENCOUNTER 2020-08-26 17:59 | Emergency (ER) | payer MEDICAID, OTHER ==
[~2020-08-26] VITALS: Ht 180.3 cm; Wt 59.3 kg
[~2020-08-26 17:59] MED LIST changes: +CARA1TAB6 PO; +HYDR50TA70 PO; +MIRT1TAB15 PO; +PEPC1TAB5 PO
[2020-08-26] MEDS ORDERED: METOCLOPRAMIDE INJ 10MG/2ML VIAL (J2765 PER 1) IV ONE (19:20)
[2020-08-26] MEDS ORDERED: GI COCKTAIL 50ML BTL(HYOSCYAMINE/MAALOX/LIDOCAINE VISCOUS)(1:3:1) PO ONE (19:20)
[2020-08-26 19:58] LABS: BASO # 0.1 10^3/uL (0.0-0.2); BASO % 0.5 % (0.0-1.0); EOS # 0.1 10^3/uL (0.0-0.5); EOS % 0.7 % (0.0-3.0); HEMATOCRIT 36.5 % (42.0-52.0); HEMOGLOBIN 12.9 g/dl (13.5-17.5); LYMPH # 1.9 10^3/uL (1.5-5.0); LYMPH % 12.5 % (24.0-44.0); MEAN CORPUSCULAR HEMOGLOBIN 32.8 pg (27.0-33.0); MEAN CORPUSCULAR HGB CONC 35.3 g/dl (32.0-36.5); MEAN CORPUSCULAR VOLUME 92.9 fl (80.0-96.0); MONO # 0.8 10^3/uL (0.0-0.8); MONO % 5.5 % (2.0-8.0); NEUTROPHILS # 12.1 10^3/uL (1.5-8.5); NEUTROPHILS % 80.3 % (36.0-66.0); PLATELET COUNT, AUTOMATED 307 10^3/uL (150-450); RED BLOOD COUNT 3.93 10^6/uL (4.30-6.10)
[2020-08-26 20:34] LABS: ALBUMIN 3.8 GM/DL (3.2-5.2); ALT/SGPT 35 U/L (12-78); BILIRUBIN,DIRECT 0.2 MG/DL (0.0-0.2); BILIRUBIN,TOTAL 0.9 MG/DL (0.2-1.0); CK-MB VALUE MASS 1.8 NG/ML (<3.6); CPK CREATINE PHOSPHOKINASE 294 U/L (39-308); LIPASE 100 U/L (73-393); MB/CK RELATIVE INDEX 0.61 (< OR =4); TROPONIN I < 0.02 NG/ML (< 0.10)
[2020-08-26] MEDS ORDERED: amLODIPine 5 MG TAB PO ONE (21:35)
[2020-08-26] MEDS ORDERED: PROMETHAZINE INJ 25 MG/ML VIAL (J2550) IV ONE (21:35)
[2020-08-26] MEDS ORDERED: MORPHINE 4 MG/ML 1ML VIAL/SYRINGE (J2270) IV PRN (21:35)
[2020-08-26] MEDS: GASTROGRAFIN SOLUTION 30ML PO SCH ×2 (22:15→22:45)
[2020-08-26 22:43] VITALS: BP 186/100
[2020-08-26] MEDS ORDERED: ISOVUE-370 76% 100ML VIAL As Ordered ONE (23:32)
--- NOTE | 2020-08-26 23:34 | REPVR ---
PROCEDURE INFORMATION: Exam: US Abdomen, Limited; Right Upper Quadrant Exam date and time: 08/26/20 (10:05pm) Age: 50 years old Clinical indication: Epigastric and RUQ pain TECHNIQUE: Imaging protocol: US abdomen. Real time ultrasound with image documentation. Limited examination focused on the right upper quadrant. COMPARISON: CT ABDOMEN PELVIS of 08/25/20 US ABDOMEN (limited) of 08/18/14 FINDINGS: The liver is visually normal in size and texture. A few small cysts (including 2 small septated cysts -- left lobe: 9 x 10 x 7 mm size; right lobe: 16 x 10 x 14 mm size). Multiple small gallbladder wall polyps (largest measures 6 mm size) (similar findings in August 2014). Some sludge. No pericholecystic fluid is appreciated. The CBD is not dilated (2.7 mm diameter). The visualized portions of the pancreas appear unremarkable (bowel gas obscures portions of the pancreas). The right kidney measures 9.5 cm in length, with no hydronephrosis appreciated. No ascites is seen. IMPRESSION: No acute pathology. A few small hepatic cysts. No evidence of acute cholecystitis. A few small gallbladder mural polyps are seen. No biliary obstruction. Electronically signed by: Gwen Brown On 08/26/2020 23:33:50 PM
--- NOTE | 2020-08-27 00:39 | REPVR ---
PROCEDURE INFORMATION: Exam: CT Abdomen And Pelvis With Contrast Exam date and time: 08/26/2020 9:32 PM Age: 50 years old Clinical indication: Abdominal pain; Epigastric; Additional info: Epigastric pain, HX of gastritis, R/O perf TECHNIQUE: Imaging protocol: Computed tomography of the abdomen and pelvis with contrast. Radiation optimization: All CT scans at this facility use at least one of these dose optimization techniques: automated exposure control; mA and/or kV adjustment per patient size (includes targeted exams where dose is matched to clinical indication); or iterative reconstruction. Contrast material: ISO; Contrast volume: 100 ml; Contrast route: INTRAVENOUS (IV); Other contrast: Oral, ggraphin, 600; COMPARISON: CT ABD/PEL W/IV ORAL CONTRAS 08/25/2020 1:56 AM FINDINGS: Liver: Multiple cystic lesions in the liver. Largest lesion is located in the inferior right hepatic lobe measuring 11 x 13 mm. Gallbladder and bile ducts: Normal. No calcified stones. No ductal dilation. Pancreas: Normal. No ductal dilation. Spleen: Normal. No splenomegaly. Mild capsular calcification along the spleen. Adrenal glands: Normal. No mass. Kidneys and ureters: Normal. No hydronephrosis. Stomach and bowel: Stomach is unremarkable on CT. Diffuse mild thickening of the left colon and sigmoid colon. Colonic diverticulosis without diverticulitis. No abnormal bowel dilatation. Appendix: Appendix is normal. Intraperitoneal space: Unremarkable. No free air. No significant fluid collection. Vasculature: Unremarkable. No abdominal aortic aneurysm. Moderate atherosclerotic disease. Lymph nodes: Unremarkable. No enlarged lymph nodes. Urinary bladder: Unremarkable as visualized. Reproductive: Prostate is normal in size. Curvilinear enhancing lesion in the right lobe of the prostate measuring 10 x 5 mm. Bones/joints: Severe degenerative spine. No acute fracture. Subacute compression fracture of L1 with 25% loss of height. Soft tissues: Unremarkable. IMPRESSION: 1. Diffuse mild thickening of the left colon and sigmoid colon. Colitis cannot be excluded. 2. Multiple cystic lesions in the liver. No follow-up is necessary. 3. Curvilinear enhancing lesion in the right lobe of the prostate. 4. Subacute compression fracture of L1 with 25% loss of height. Unchanged from prior. 5. Additional findings as described. Electronically signed by: Lilibeth Olsen On 08/27/2020 00:38:49 AM
[2020-08-27] MEDS ORDERED: POTASSIUM CHLORIDE 10 MEQ SR TABLET PO ONE (02:00)
[2020-08-27 02:02] VITALS: BP 184/110
[2020-08-27] MEDS ORDERED: NORV5TAB PO (02:07)
--- NOTE | 2020-08-27 20:25 | ECGEPIP ---
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
--- NOTE | 2020-08-30 11:00 | ED PDOC ---
Post-Departure Follow-Up [facility] faxed to dave miguel for fu Juan Gould MD August 30, 2020 11:00
== END 2020-08-27 02:17 | disposition home or self-care (01) ==
LOC: M ED 17:59
DX: R10.9 Unspecified abdominal pain (principal); I10 Essential (primary) hypertension; R11.2 Nausea with vomiting, unspecified; R94.31 Abnormal electrocardiogram [ECG] [EKG]; K76.89 Other specified diseases of liver; K21.9 Gastro-esophageal reflux disease without esophagitis; S32.010D Wedge compression fracture of first lumbar vertebra, subsequent encounter for fracture with routine healing; Z79.899 Other long term (current) drug therapy
CPT/HCPCS: 74177; 76705; 80047; 80076; 82550; 82553; 83690; 85025; 93005; 93041; 96374; 96375; 99285; J2270; J2765; Q9967

== ENCOUNTER 2021-06-07 07:00 | Emergency (ER) | payer MEDICAID, OTHER ==
[~2021-06-07] VITALS: Ht 180.3 cm; Wt 59.1 kg
[~2021-06-07 07:00] MED LIST changes: +NORV5TAB PO; +OMEP40CA4 PO; -OMEP40CA97 PO
[2021-06-07] MEDS ORDERED: ONDANSETRON 4MG/2ML VIAL IV ONE (07:15)
[2021-06-07] MEDS ORDERED: NS 1,000 ML IV ONE ×2 (07:15→08:20)
[2021-06-07 07:44] LABS: BASO # 0.1 10^3/uL (0.0-0.2); BASO % 0.6 % (0.0-1.0); EOS # 0.1 10^3/uL (0.0-0.5); EOS % 1.2 % (0.0-3.0); HEMATOCRIT 36.9 % (42.0-52.0); HEMOGLOBIN 12.6 g/dl (13.5-17.5); LYMPH # 2.5 10^3/uL (1.5-5.0); LYMPH % 22.1 % (24.0-44.0); MEAN CORPUSCULAR HEMOGLOBIN 31.9 pg (27.0-33.0); MEAN CORPUSCULAR HGB CONC 34.1 g/dl (32.0-36.5); MEAN CORPUSCULAR VOLUME 93.4 fl (80.0-96.0); MONO # 0.6 10^3/uL (0.0-0.8); MONO % 5.7 % (2.0-8.0); NEUTROPHILS # 7.8 10^3/uL (1.5-8.5); NEUTROPHILS % 70.1 % (36.0-66.0); PLATELET COUNT, AUTOMATED 224 10^3/uL (150-450); RED BLOOD COUNT 3.95 10^6/uL (4.30-6.10); WHITE BLOOD COUNT 11.1 10^3/uL (4.0-10.0)
[2021-06-07] MEDS ORDERED: MORPHINE 4 MG/ML 1ML VIAL/SYRINGE (J2270) IV ONE (07:55)
[2021-06-07 08:03] LABS: ALBUMIN 3.4 GM/DL (3.2-5.2); BILIRUBIN,DIRECT 0.2 MG/DL (0.0-0.2); BILIRUBIN,TOTAL 0.4 MG/DL (0.2-1.0); TOTAL PROTEIN 6.4 GM/DL (6.4-8.2)
[2021-06-07] MEDS ORDERED: ISOVUE-370 76% 100ML VIAL As Ordered ONE (08:16)
[2021-06-07 09:11] LABS: AMPHETAMINES LEVEL URINE NEGATIVE (NEGATIVE); BARBITURATES URINE NEGATIVE (NEGATIVE); BENZODIAZEPINES URINE NEGATIVE (NEGATIVE); CANNABINOIDS URINE POSITIVE (NEGATIVE); COCAINE METABOLITE URINE NEGATIVE (NEGATIVE); METHADONE URINE NEGATIVE (NEGATIVE); OPIATES URINE POSITIVE (NEGATIVE); PHENCYCLIDINE URINE NEGATIVE (NEGATIVE)
[2021-06-07 09:35] LABS: CK-MB VALUE MASS < 1.0 NG/ML (<3.6); CPK CREATINE PHOSPHOKINASE 95 U/L (39-308); MB/CK RELATIVE INDEX 1.05 (< OR =4)
[2021-06-07] MEDS ORDERED: LISI10TA22 PO (12:07)
[2021-06-07 12:24] VITALS: BP 176/100
== END 2021-06-07 21:32 | disposition home or self-care (01) ==
LOC: M ED 07:00
DX: K51.90 Ulcerative colitis, unspecified, without complications (principal); R10.11 Right upper quadrant pain; I10 Essential (primary) hypertension; R11.2 Nausea with vomiting, unspecified; R94.31 Abnormal electrocardiogram [ECG] [EKG]; K21.9 Gastro-esophageal reflux disease without esophagitis; F32.A Depression, unspecified; F41.8 Other specified anxiety disorders
CPT/HCPCS: 74177; 80047; 80076; 80307; 82550; 82553; 83690; 85025; 93005; 96361; 96374; 96375; 99284; J2270; J2405; Q9967

== ENCOUNTER 2021-10-19 15:38 | Emergency (ER) | payer MEDICAID, OTHER ==
[~2021-10-19] VITALS: Ht 180.3 cm; Wt 61.4 kg
[~2021-10-19 15:38] MED LIST changes: +LISI10TA22 PO
[2021-10-19 17:08] LABS: BASO # 0.1 10^3/uL (0.0-0.2); BASO % 0.4 % (0.0-1.0); EOS % 0.1 % (0.0-3.0); HEMATOCRIT 39.8 % (42.0-52.0); HEMOGLOBIN 13.7 g/dl (13.5-17.5); LYMPH # 1.4 10^3/uL (1.5-5.0); LYMPH % 9.8 % (24.0-44.0); MEAN CORPUSCULAR HEMOGLOBIN 32.9 pg (27.0-33.0); MEAN CORPUSCULAR HGB CONC 34.4 g/dl (32.0-36.5); MEAN CORPUSCULAR VOLUME 95.4 fl (80.0-96.0); MONO # 0.4 10^3/uL (0.0-0.8); MONO % 2.5 % (2.0-8.0); NEUTROPHILS # 11.9 10^3/uL (1.5-8.5); NEUTROPHILS % 86.7 % (36.0-66.0); PLATELET COUNT, AUTOMATED 287 10^3/uL (150-450); RED BLOOD COUNT 4.17 10^6/uL (4.30-6.10); WHITE BLOOD COUNT 13.8 10^3/uL (4.0-10.0)
[2021-10-19 17:49] LABS: ALBUMIN 4.4 GM/DL (3.2-5.2); ALT/SGPT 30 U/L (12-78); BILIRUBIN,DIRECT 0.2 MG/DL (0.0-0.2); BILIRUBIN,TOTAL 0.9 MG/DL (0.2-1.0); BLOOD UREA NITROGEN 13 MG/DL (7-18); CARBON DIOXIDE LEVEL 26 MEQ/L (21-32); CHLORIDE LEVEL 107 MEQ/L (98-107); CREATININE FOR GFR 1.14 MG/DL (0.70-1.30); GLOMERULAR FILTRATION RATE > 60.0 (>56); GLUCOSE, FASTING 150 MG/DL (70-100); LIPASE 90 U/L (73-393); POTASSIUM SERUM 4.3 MEQ/L (3.5-5.1); SODIUM LEVEL 142 MEQ/L (136-145); TOTAL PROTEIN 7.8 GM/DL (6.4-8.2)
[2021-10-19] MEDS ORDERED: ONDANSETRON 4MG 2ML VIAL IV ONE (18:45)
[2021-10-19] MEDS ORDERED: NS 1,000 ML IV ONE (18:45)
[2021-10-19] MEDS ORDERED: ISOVUE-370 76% 100ML VIAL As Ordered ONE (18:48)
[2021-10-19] MEDS ORDERED: KETOROLAC 30 MG/ML 1ML VIAL IV ONE (18:50)
[2021-10-19] MEDS ORDERED: PROMETHAZINE 25MG/ML 1ML VIAL IV ONE (20:40)
[2021-10-19] MEDS ORDERED: PROT1TAB2 PO (22:24)
[2021-10-19] MEDS ORDERED: CARA1TAB6 PO (22:24)
[2021-10-19] MEDS ORDERED: METO5TAB2 PO (22:26)
[2021-10-19 22:50] VITALS: BP 174/104
== END 2021-10-19 22:52 | disposition home or self-care (01) ==
LOC: EDBD 15:38 → M ED 15:38
DX: K52.9 Noninfective gastroenteritis and colitis, unspecified (principal); K20.90 Esophagitis, unspecified without bleeding; K76.89 Other specified diseases of liver; K44.9 Diaphragmatic hernia without obstruction or gangrene; I10 Essential (primary) hypertension; K21.9 Gastro-esophageal reflux disease without esophagitis; K51.90 Ulcerative colitis, unspecified, without complications; S22.080D Wedge compression fracture of T11-T12 vertebra, subsequent encounter for fracture with routine healing; Z79.83 Long term (current) use of bisphosphonates; Z79.899 Other long term (current) drug therapy
CPT/HCPCS: 74177; 80048; 80076; 83690; 85025; 96361; 96374; 96375; 99284; J1885; J2405; J2550; Q9967

== ENCOUNTER → 2022-05-18 | Outpatient (REF) | payer OTHER ==
[~2022-05-18] MED LIST changes: +METO5TAB2 PO; +PROT1TAB2 PO
[2022-05-18 18:52] LABS: APPEARANCE, URINE MANUAL CLEAR (CLEAR); BILIRUBIN, URINE MANUAL NEGATIVE (NEGATIVE); BLOOD URINE MANUAL NEGATIVE (NEGATIVE); COLOR, URINE MANUAL COLORLESS (YELLOW); GLUCOSE, URINE (UA) MANUAL NEGATIVE (NEGATIVE); KETONE, URINE MANUAL NEGATIVE (NEGATIVE); LEUKOCYTE ESTERASE, URINE MAN NEGATIVE (NEGATIVE); NITRITE, URINE MANUAL NEGATIVE (NEGATIVE); PROTEIN, URINE MANUAL NEGATIVE (NEGATIVE); UROBILINOGEN, URINE MANUAL NORMAL (NORMAL)
== END ==
LOC: M SFHCLERA 14:10
PROVIDERS: ATTEND Physician Assistant
DX: R35.0 Frequency of micturition (principal)

== ENCOUNTER → 2022-06-07 | Outpatient (CLI) | payer OTHER ==
[2022-06-07 12:28] LABS: BASO # 0.1 10^3/uL (0.0-0.2); BASO % 0.8 % (0.0-1.0); EOS # 0.3 10^3/uL (0.0-0.5); HEMATOCRIT 36.1 % (42.0-52.0); HEMOGLOBIN 12.2 g/dl (13.5-17.5); LYMPH # 2.7 10^3/uL (1.5-5.0); LYMPH % 26.4 % (24.0-44.0); MEAN CORPUSCULAR HEMOGLOBIN 32.8 pg (27.0-33.0); MEAN CORPUSCULAR HGB CONC 33.8 g/dl (32.0-36.5); MONO # 0.5 10^3/uL (0.0-0.8); NEUTROPHILS # 6.6 10^3/uL (1.5-8.5); NEUTROPHILS % 64.5 % (36.0-66.0); PLATELET COUNT, AUTOMATED 291 10^3/uL (150-450); RED BLOOD COUNT 3.72 10^6/uL (4.30-6.10); WHITE BLOOD COUNT 10.3 10^3/uL (4.0-10.0)
[2022-06-07 12:55] LABS: APPEARANCE, URINE CLEAR (CLEAR); BACTERIA, URINE AUTO NEGATIVE (NEGATIVE); BILIRUBIN, URINE AUTO NEGATIVE (NEGATIVE); BLOOD, URINE BLOOD NEGATIVE (NEGATIVE); COLOR, URINE YELLOW (YELLOW); GLUCOSE, URINE (UA) AUTO NEGATIVE (NEGATIVE); KETONE, URINE AUTO NEGATIVE (NEGATIVE); LEUKOCYTE ESTERASE, URINE AUTO NEGATIVE (NEGATIVE); MUCUS, URINE SMALL (NEGATIVE); NITRITE, URINE AUTO NEGATIVE (NEGATIVE); PROTEIN, URINE AUTO NEGATIVE (NEGATIVE); RBC, URINE AUTO 3 /HPF (0-3); SQUAMOUS EPITHELIAL CELL UR AU 0 /HPF (0-6); UROBILINOGEN, URINE AUTO 0.2 mg/dL (0.0-2.0); WBC, URINE AUTO 6 /HPF (0-3)
[2022-06-07 14:03] LABS: ALBUMIN 3.7 G/DL (3.2-5.2); ALKALINE PHOSPHATASE 86 U/L (46-116); ALT/SGPT 18 U/L (7.0-40); AST/SGOT 22 U/L (<34); BILIRUBIN,TOTAL 0.7 MG/DL (0.3-1.2); BLOOD UREA NITROGEN 19 MG/DL (9-23); CALCIUM LEVEL 9.2 MG/DL (8.5-10.1); CARBON DIOXIDE LEVEL 28 MMOL/L (20-31); CHLORIDE LEVEL 102 MMOL/L (98-107); CHOLESTEROL LEVEL 170 MG/DL (<200); CHOLESTEROL RISK RATIO 2.13 (<5); CREATININE FOR GFR 0.97 MG/DL (0.70-1.30); GLOMERULAR FILTRATION RATE > 60.0 (>56); GLUCOSE, FASTING 89 MG/DL (60-100); HDL CHOLESTEROL 79.5 MG/DL (>40); LDL CHOLESTEROL 82.5 MG/DL (<100); NON-HDL-C 91 MG/DL; SODIUM LEVEL 138 MMOL/L (136-145); THYROID STIMULATING HORMONE 1.976 uIU/ML (0.55-4.78); TOTAL PROTEIN 6.5 G/DL (5.7-8.2); TRIGLYCERIDES LEVEL 40 MG/DL (<150)
== END ==
LOC: M RAD 10:23
PROVIDERS: ATTEND Physician Assistant
DX: R35.0 Frequency of micturition (principal); R39.11 Hesitancy of micturition; R32 Unspecified urinary incontinence; N32.89 Other specified disorders of bladder; Z13.6 Encounter for screening for cardiovascular disorders

== ENCOUNTER → 2022-08-29 | Outpatient (CLI) | payer OTHER | LOC: M RAD 14:56 | PROVIDERS: ATTEND Physician Assistant | DX: N50.3 Cyst of epididymis (principal) ==

== ENCOUNTER 2023-03-13 10:40 | Emergency (ER) | payer OTHER, SELFPAY ==
[~2023-03-13] VITALS: Ht 180.3 cm; Wt 62.5 kg
[2023-03-13 12:29] LABS: BASO % 0.3 % (0.0-1.0); HEMOGLOBIN 13.9 g/dl (13.5-17.5); LYMPH # 1.2 10^3/uL (1.5-5.0); LYMPH % 11.3 % (24.0-44.0); MEAN CORPUSCULAR HEMOGLOBIN 31.7 pg (27.0-33.0); MEAN CORPUSCULAR HGB CONC 33.9 g/dl (32.0-36.5); MEAN CORPUSCULAR VOLUME 93.6 fl (80.0-96.0); MONO # 0.5 10^3/uL (0.0-0.8); MONO % 4.7 % (2.0-8.0); NEUTROPHILS # 8.7 10^3/uL (1.5-8.5); PLATELET COUNT, AUTOMATED 288 10^3/uL (150-450); RED BLOOD COUNT 4.38 10^6/uL (4.30-6.10); WHITE BLOOD COUNT 10.5 10^3/uL (4.0-10.0)
[2023-03-13 12:57] LABS: LIPASE 40 U/L (12-53)
[2023-03-13 12:59] LABS: ALBUMIN 4.2 G/DL (3.2-5.2); ALKALINE PHOSPHATASE 103 U/L (46-116); ALT/SGPT 20 U/L (7.0-40); AST/SGOT 18 U/L (<34); BILIRUBIN,DIRECT 0.2 MG/DL (<0.4); BILIRUBIN,TOTAL 0.7 MG/DL (0.3-1.2); TOTAL PROTEIN 7.8 G/DL (5.7-8.2)
[2023-03-13] MEDS ORDERED: FLOM0.4C39 PO (13:05)
[2023-03-13 13:21] LABS: BLOOD UREA NITROGEN 14 MG/DL (9-23); CALCIUM LEVEL 9.6 MG/DL (8.5-10.1); CARBON DIOXIDE LEVEL 25 MMOL/L (20-31); CHLORIDE LEVEL 101 MMOL/L (98-107); CREATININE FOR GFR 0.93 MG/DL (0.70-1.30); GLOMERULAR FILTRATION RATE > 60.0 (>56); GLUCOSE, FASTING 167 MG/DL (60-100); POTASSIUM SERUM 3.8 MMOL/L (3.5-5.1); SODIUM LEVEL 136 MMOL/L (136-145)
[2023-03-13] MEDS ORDERED: ACETAMINOPHEN 325 MG TAB PO ONE (14:00)
[2023-03-13] MEDS ORDERED: ONDANSETRON 4MG ORAL DISINTEGRATING TAB PO ONE (14:00)
[2023-03-13] MEDS ORDERED: DICYCLOMINE 10 MG CAP PO ONE (14:00)
[2023-03-13] MEDS ORDERED: NS 1,000 ML IV ONE (14:30)
[2023-03-13] MEDS ORDERED: HALOPERIDOL 5MG/ML 1ML VIAL IV ONE (14:45)
[2023-03-13] MEDS ORDERED: KETOROLAC 30 MG/ML 1ML VIAL IV ONE (15:25)
[2023-03-13] MEDS ORDERED: DICY20TA20 PO (16:46)
[2023-03-13] MEDS ORDERED: ONDA4TAB6 PO (16:46)
[2023-03-13 17:14] VITALS: BP 168/82; TEMP 97.4; O2SAT 98
== END 2023-03-13 17:15 | disposition home or self-care (01) ==
LOC: M ED 10:40
DX: B34.9 Viral infection, unspecified (principal); I10 Essential (primary) hypertension; K21.9 Gastro-esophageal reflux disease without esophagitis; F41.9 Anxiety disorder, unspecified; F32.A Depression, unspecified; K58.9 Irritable bowel syndrome, unspecified; F12.10 Cannabis abuse, uncomplicated; F10.10 Alcohol abuse, uncomplicated; Z79.83 Long term (current) use of bisphosphonates; Z79.811 Long term (current) use of aromatase inhibitors; Z79.810 Long term (current) use of selective estrogen receptor modulators (SERMs); Z79.899 Other long term (current) drug therapy
CPT/HCPCS: 80048; 80076; 83690; 85025; 87486; 87581; 87633; 87798; 96361; 96374; 96375; 99284; J1630; J1885